=== PATIENT | female | born 1945 | race Caucasian/White ===

== ENCOUNTER 2016-12-02 09:57 | Day surgery (SDC) | payer MEDICARE, BC ==
[~2016-12-02 09:57] MED LIST: AMLO2.5T OR; CALC600T34 PO; CENTTAB9 PO; DOXY100T PO; SULF-154 PO
[2016-12-02 11:00] VITALS: BP 148/83; PULSE 93; RESP 16; TEMP 97.9; O2SAT 98
[2016-12-02 11:45] VITALS: BP 136/71; PULSE 77; RESP 16; O2SAT 100
[2016-12-02] MEDS ORDERED: LIDOCAINE HCL 1% PF 30 ML VIAL ONE (11:52)
[2016-12-02 12:00] VITALS: BP 145/76; PULSE 78; RESP 16; O2SAT 99
--- NOTE | 2016-12-02 12:15 | RADRPT ---
EXAM DATE/TIME: 12/02/2016 10:28 [place] COMPARISON: No previous studies available for comparison. INDICATIONS : Right axillary mass. MEDICAL HISTORY : Carcinoma, breast. Hypertension. Irregular heartbeat. Arthritis. Anxiety. Chemotherapy. SURGICAL HISTORY : Cholecystectomy Mastectomy, right. section. Right port placement. ENCOUNTER: Initial ACUITY: 1 month PAIN SCORE: 1/10 LOCATION: Right axilla. ORGAN: Right axillary mass. SPECIMENS: Three core specimen(s) submitted for pathologic evaluation. DEVICE: 18 gauge Temno needle Post procedure scanning reveals no hematoma or other complication. The possibility does exist that the tissue obtained will be non-diagnostic. If the sample is non-tamara gnostic a repeat biopsy or surgical biopsy may need to be performed. TECHNIQUE: 1. Ultrasound guidance for needle biopsy. 2. Needle biopsy. The risks, benefits, and alternatives to ultrasound guided needle biopsy were explained to the patien t in detail including the risk of bleeding and infection. Written and verbal informed consent was ob tained. With the patient on the ultrasound table, images were obtained. Overlying skin was prepped and drape d in the usual sterile fashion and Lidocaine was utilized as a local anesthetic. A needle was advanced into the identified target and the number of specimens as above obtained and san bmitted for pathologic evaluation. The patient tolerated the procedure well and left the ultrasound suite in stable condition. CONCLUSION: Uncomplicated ultrasound guided needle biopsy. Luis Joe MD on December 02, 2016 at 12:13 Board Certified Radiologist. This report was verified electronically.
== END 2016-12-02 12:00 | disposition home or self-care (01) ==
LOC: HRAD 09:57 → HRIP 09:58 → HRAD 12:00
PROVIDERS: ATTEND Internal Medicine Hematology & Oncology
DX: R22.9 Localized swelling, mass and lump, unspecified (principal); I10 Essential (primary) hypertension; F41.9 Anxiety disorder, unspecified; Z85.3 Personal history of malignant neoplasm of breast
CPT/HCPCS: 38505; 76942; 88305; 88341; 88342; 88361; 88377